=== PATIENT | female | born 1950 | race Caucasian/White ===

== ENCOUNTER 2020-05-21 14:32 | Inpatient (IN) | payer OTHER ==
[~2020-05-21] VITALS: Ht 165.1 cm; Wt 95.5 kg
[2020-05-21] MEDS ORDERED: KETOROLAC 15MG/ML VIAL IV ONE (15:00)
[2020-05-21] MEDS ORDERED: SODIUM CHLORIDE 0.9% 1,000 ML IV ONE (15:00)
[2020-05-21 15:23] LABS: BASOPHILS % 0.3 % (0.0-2.0); HEMATOCRIT. 38.9 % (36.0-48.0); HEMOGLOBIN. 12.7 g/dL (12.0-16.0); LYMPHOCYTES % 7.5 % (20.0-50.0); MEAN CORPUSCULAR HEMOGLOBIN 30.8 pg (28.0-32.0); MEAN CORPUSCULAR VOLUME 94.5 fL (81.0-99.0); MEAN PLATELET VOLUME 8.5 fl (7.4-10.4); NEUTROPHILS % 83.2 % (40.0-76.0); PLATELET 316 x1000/uL (130-400); RED BLOOD CELL COUNT 4.12 mill/uL (4.2-5.4); RED CELL DISTRIBUTION WIDTH 14.2 % (11.6-14.6)
[2020-05-21 15:29] LABS: CHLORIDE 105 mEq/L (98-107)
[2020-05-21 15:34] LABS: PROTHROMBIN TIME 10.9 sec (9.6-11.0)
[2020-05-21 16:08] LABS: CREATINE KINASE 5896 IU/L (26-192)
[2020-05-21] MEDS ORDERED: DOCUSATE SODIUM 100MG CAPSULE PO PRN (19:30)
[2020-05-21] MEDS ORDERED: IPRATROPIUM/ALBUTEROL 0.5-3(2.5)MG/3ML NEB HHN PRN (19:30)
[2020-05-21] MEDS: SODIUM CHLORIDE 0.45% 1,000 ML IV SCH (19:30)
[2020-05-21] MEDS ORDERED: LORAZEPAM 2MG/ML CPJ IV PRN (19:30)
[2020-05-21] MEDS ORDERED: MAGNESIUM/ALUMINUM HYDROXIDE/SIMETHICONE 30ML UDC PO PRN (19:30)
[2020-05-21] MEDS ORDERED: ONDANSETRON HCL 4MG/2ML INJ IV PRN (19:30)
[2020-05-21] MEDS ORDERED: DIPHENHYDRAMINE 50MG/ML VIAL IV PRN (19:30)
[2020-05-21] MEDS ORDERED: HYDRALAZINE 20MG/ML VIAL IV PRN (19:30)
[2020-05-21] MEDS ORDERED: GUAIFENESIN 200MG/10ML SUGAR FREE UDC PO PRN (19:30)
[2020-05-21] MEDS: SODIUM CHLORIDE 0.9% INJ 3ML FLUSH IVF SCH (22:44)
[2020-05-21] MEDS: ENOXAPARIN 40MG/0.4ML SYR SUBCUT SCH (23:15)
[2020-05-21 23:31] LABS: CREATINE KINASE MB FRACTION 40.4 ng/mL (0.5-3.6)
[2020-05-21 23:43] LABS: CREATINE KINASE 6392 IU/L (26-192)
[2020-05-22 04:24] LABS: BASOPHILS % 0.1 % (0.0-2.0); HEMATOCRIT. 35.3 % (36.0-48.0); HEMOGLOBIN. 11.2 g/dL (12.0-16.0); LYMPHOCYTES % 10.1 % (20.0-50.0); MEAN CORPUSCULAR HEMOGLOBIN 29.9 pg (28.0-32.0); MEAN CORPUSCULAR VOLUME 94.5 fL (81.0-99.0); MEAN PLATELET VOLUME 8.7 fl (7.4-10.4); MONOCYTES % 9.7 % (2.0-8.0); NEUTROPHILS % 80.1 % (40.0-76.0); PLATELET 287 x1000/uL (130-400); RED BLOOD CELL COUNT 3.74 mill/uL (4.2-5.4)
[2020-05-22 04:31] LABS: CHLORIDE 110 mEq/L (98-107)
[2020-05-22 04:47] LABS: CREATINE KINASE MB FRACTION 25.2 ng/mL (0.5-3.6)
[2020-05-22 04:58] LABS: CREATINE KINASE 5380 IU/L (26-192)
[2020-05-22] MEDS: HYDROCODONE/ACETAMINOPHEN 5/325MG TABLET PO PRN (05:42)
[2020-05-22] MEDS: SODIUM CHLORIDE 0.45% 1,000 ML IV SCH ×2 (09:04→23:04)
[2020-05-22 10:00] VITALS: BP 127/75
[2020-05-22] MEDS ORDERED: POTASSIUM CHLORIDE 20MEQ TABLET SR PO NR (10:30)
[2020-05-22] MEDS: MORPHINE SULFATE 2 MG/ML CPJ (NOT FOR IM USE) IV PRN (11:13)
[2020-05-22] MEDS: SODIUM CHLORIDE 0.9% INJ 3ML FLUSH IVF SCH ×3 (11:14→22:58)
[2020-05-22 12:19] VITALS: BP 116/66
[2020-05-22 16:00] VITALS: BP 123/82
[2020-05-22 20:00] VITALS: BP 133/73
[2020-05-22] MEDS: ENOXAPARIN 40MG/0.4ML SYR SUBCUT SCH (20:17)
[2020-05-23] VITALS: BP 130/80
[2020-05-23] MEDS: MORPHINE SULFATE 2 MG/ML CPJ (NOT FOR IM USE) IV PRN ×2 (02:54→13:52)
[2020-05-23 04:00] VITALS: BP 115/82
[2020-05-23] MEDS: ACETAMINOPHEN 325MG TABLET PO PRN ×2 (04:46→16:14)
[2020-05-23] MEDS: SODIUM CHLORIDE 0.9% INJ 3ML FLUSH IVF SCH ×3 (05:29→22:25)
[2020-05-23 07:30] LABS: BASOPHILS % 0.1 % (0.0-2.0); EOSINOPHILS % 0.1 % (0.0-5.0); HEMOGLOBIN. 9.7 g/dL (12.0-16.0); LYMPHOCYTES % 9.4 % (20.0-50.0); MEAN CORPUSCULAR HEMOGLOBIN 30.5 pg (28.0-32.0); MEAN CORPUSCULAR VOLUME 94.6 fL (81.0-99.0); MEAN PLATELET VOLUME 8.9 fl (7.4-10.4); MONOCYTES % 10.4 % (2.0-8.0); PLATELET 274 x1000/uL (130-400); RED BLOOD CELL COUNT 3.17 mill/uL (4.2-5.4)
[2020-05-23 07:42] LABS: CHLORIDE 112 mEq/L (98-107)
[2020-05-23 08:00] VITALS: BP 133/67
[2020-05-23 08:05] LABS: CREATINE KINASE MB FRACTION 4.3 ng/mL (0.5-3.6)
[2020-05-23 08:18] LABS: CREATINE KINASE 2104 IU/L (26-192)
[2020-05-23] MEDS ORDERED: POTASSIUM CHLORIDE 20MEQ TABLET SR PO SCH (09:00)
[2020-05-23] MEDS: SODIUM CHLORIDE 0.45% 1,000 ML IV SCH (11:30)
[2020-05-23 12:00] VITALS: BP 143/80
[2020-05-23 16:00] VITALS: BP 133/80
[2020-05-23] MEDS ORDERED: POTASSIUM CHLORIDE INJ 40 MEQ in DEXT 5% WATER 250 ML IV SCH (16:00)
[2020-05-23] MEDS: ENOXAPARIN 40MG/0.4ML SYR SUBCUT SCH (19:36)
[2020-05-23 20:00] VITALS: BP 136/75
[2020-05-24] VITALS: BP 139/69
[2020-05-24] MEDS: SODIUM CHLORIDE 0.45% 1,000 ML IV SCH ×2 (00:33→14:47)
[2020-05-24] MEDS: MORPHINE SULFATE 2 MG/ML CPJ (NOT FOR IM USE) IV PRN ×2 (02:55→11:28)
[2020-05-24 04:00] VITALS: BP 150/82
[2020-05-24] MEDS: ACETAMINOPHEN 325MG TABLET PO PRN ×2 (04:56→20:07)
[2020-05-24] MEDS: SODIUM CHLORIDE 0.9% INJ 3ML FLUSH IVF SCH ×3 (05:34→20:07)
[2020-05-24 06:08] LABS: BASOPHILS % 0.2 % (0.0-2.0); EOSINOPHILS % 0.1 % (0.0-5.0); HEMATOCRIT. 30.8 % (36.0-48.0); HEMOGLOBIN. 9.8 g/dL (12.0-16.0); LYMPHOCYTES % 9.8 % (20.0-50.0); MEAN CORPUSCULAR HEMOGLOBIN 30.5 pg (28.0-32.0); MEAN PLATELET VOLUME 8.8 fl (7.4-10.4); MONOCYTES % 10.1 % (2.0-8.0); NEUTROPHILS % 79.8 % (40.0-76.0); PLATELET 265 x1000/uL (130-400); RED BLOOD CELL COUNT 3.21 mill/uL (4.2-5.4); RED CELL DISTRIBUTION WIDTH 14.1 % (11.6-14.6)
[2020-05-24 06:24] LABS: CHLORIDE 113 mEq/L (98-107)
[2020-05-24 06:37] LABS: CREATINE KINASE 966 IU/L (26-192)
[2020-05-24 08:00] VITALS: BP 97/67
[2020-05-24 12:00] VITALS: BP 143/75
[2020-05-24] MEDS ORDERED: CEFTRIAXONE 1 G PREMIX 50 ML IV SCH (13:15)
[2020-05-24] MEDS: CEFTRIAXONE 1,000 MG in DEXTROSE 5% WATER 50 ML IV SCH (14:46)
[2020-05-24] MEDS: HYDROCODONE/ACETAMINOPHEN 5/325MG TABLET PO PRN (14:47)
[2020-05-24 16:00] VITALS: BP 138/78
[2020-05-24 20:00] VITALS: BP 142/77
[2020-05-24] MEDS: ENOXAPARIN 40MG/0.4ML SYR SUBCUT SCH (20:07)
[2020-05-24 20:49] LABS: CLARITY URINE CLEAR (CLEAR); COLOR URINE YELLOW (YELLOW); KETONES URINE NEGATIVE (NEGATIVE); LEUKOCYTE ESTERASE URINE NEGATIVE (NEGATIVE); NITRITE URINE NEGATIVE (NEGATIVE); OCCULT BLOOD URINE NEGATIVE (NEGATIVE); PROTEIN URINE 1+ (NEGATIVE); SPECIFIC GRAVITY URINE 1.017 (1.005-1.030)
[2020-05-25] VITALS (7 sets, daily range): BP systolic 125–159; BP diastolic 62–89
[2020-05-25] MEDS: MORPHINE SULFATE 2 MG/ML CPJ (NOT FOR IM USE) IV PRN ×3 (02:08→17:58)
[2020-05-25] MEDS: ACETAMINOPHEN 325MG TABLET PO PRN ×3 (02:08→17:01)
[2020-05-25] MEDS: SODIUM CHLORIDE 0.45% 1,000 ML IV SCH ×2 (03:33→16:45)
[2020-05-25] MEDS: HYDROCODONE/ACETAMINOPHEN 5/325MG TABLET PO PRN (05:34)
[2020-05-25] MEDS: SODIUM CHLORIDE 0.9% INJ 3ML FLUSH IVF SCH ×3 (05:35→20:34)
[2020-05-25 08:27] LABS: BASOPHILS % 0.2 % (0.0-2.0); EOSINOPHILS % 0.7 % (0.0-5.0); HEMATOCRIT. 30.5 % (36.0-48.0); HEMOGLOBIN. 9.9 g/dL (12.0-16.0); LYMPHOCYTES % 12.9 % (20.0-50.0); MEAN CORPUSCULAR HEMOGLOBIN 30.6 pg (28.0-32.0); MEAN CORPUSCULAR VOLUME 94.8 fL (81.0-99.0); MEAN PLATELET VOLUME 8.3 fl (7.4-10.4); MONOCYTES % 9.7 % (2.0-8.0); NEUTROPHILS % 76.5 % (40.0-76.0); PLATELET 282 x1000/uL (130-400); RED BLOOD CELL COUNT 3.22 mill/uL (4.2-5.4); RED CELL DISTRIBUTION WIDTH 13.8 % (11.6-14.6)
[2020-05-25 08:35] LABS: CHLORIDE 109 mEq/L (98-107)
[2020-05-25] MEDS ORDERED: POTASSIUM CHLORIDE 20MEQ/PACKET PO NR (10:15)
[2020-05-25] MEDS: CEFTRIAXONE 1,000 MG in DEXTROSE 5% WATER 50 ML IV SCH (14:04)
[2020-05-25] MEDS ORDERED: ACETAMINOPHEN 650MG SUPP PR PRN (17:15)
[2020-05-25] MEDS: ENOXAPARIN 40MG/0.4ML SYR SUBCUT SCH (21:03)
[2020-05-26] VITALS: BP 118/86
[2020-05-26 04:00] VITALS: BP_SYST 132; BP_SYST 93; BP_DIAS 60; BP_DIAS 85
[2020-05-26] MEDS: SODIUM CHLORIDE 0.9% INJ 3ML FLUSH IVF SCH ×3 (06:51→21:14)
[2020-05-26] MEDS: SODIUM CHLORIDE 0.45% 1,000 ML IV SCH ×2 (07:15→18:40)
[2020-05-26 07:22] LABS: CHLORIDE 108 mEq/L (98-107)
[2020-05-26 08:00] VITALS: BP 151/81
[2020-05-26] MEDS ORDERED: POTASSIUM CHLORIDE INJ 40 MEQ in DEXT 5% WATER 250 ML IV SCH (10:00)
[2020-05-26 12:00] VITALS: BP 155/83
[2020-05-26] MEDS: ACETAMINOPHEN 325MG TABLET PO PRN ×2 (12:55→21:15)
[2020-05-26] MEDS: CEFTRIAXONE 1,000 MG in DEXTROSE 5% WATER 50 ML IV SCH (14:18)
[2020-05-26 16:20] VITALS: BP 129/66
[2020-05-26] MEDS: ENOXAPARIN 40MG/0.4ML SYR SUBCUT SCH (18:39)
[2020-05-26 20:00] VITALS: BP 127/73
[2020-05-27] MEDS: SODIUM CHLORIDE 0.9% INJ 3ML FLUSH IVF SCH ×3 (05:42→22:03)
[2020-05-27] MEDS: ACETAMINOPHEN 325MG TABLET PO PRN ×2 (06:22→20:23)
[2020-05-27 08:00] VITALS: BP 148/97
[2020-05-27] MEDS: SODIUM CHLORIDE 0.45% 1,000 ML IV SCH ×2 (09:16→22:04)
[2020-05-27 12:00] VITALS: BP 132/70
[2020-05-27] MEDS: MORPHINE SULFATE 2 MG/ML CPJ (NOT FOR IM USE) IV PRN ×2 (12:25→17:05)
[2020-05-27 12:32] LABS: CHLORIDE 105 mEq/L (98-107)
[2020-05-27] MEDS ORDERED: POTASSIUM CHLORIDE INJ 40 MEQ in DEXT 5% WATER 250 ML IV ONE (13:00)
[2020-05-27] MEDS ORDERED: LIDOCAINE HCL 1% 20ML VIAL (Pyxis) INJ ONE (14:48)
[2020-05-27] MEDS: CEFTRIAXONE 1,000 MG in DEXTROSE 5% WATER 50 ML IV SCH (16:35)
[2020-05-27 20:00] VITALS: BP 156/77
[2020-05-27] MEDS: ENOXAPARIN 40MG/0.4ML SYR SUBCUT SCH (20:21)
[2020-05-28] VITALS (7 sets, daily range): BP systolic 140–158; BP diastolic 68–89
[2020-05-28] MEDS: MORPHINE SULFATE 2 MG/ML CPJ (NOT FOR IM USE) IV PRN ×3 (06:26→17:45)
[2020-05-28] MEDS: SODIUM CHLORIDE 0.9% INJ 3ML FLUSH IVF SCH ×3 (06:59→21:00)
[2020-05-28] MEDS ORDERED: DEXT 5%/0.9% NACL 1,000 ML IV SCH (11:00)
[2020-05-28] MEDS ORDERED: DEXT 5%/0.45% NACL 500ML 1,000 ML IV SCH (11:15)
[2020-05-28] MEDS: DEXT 5%/0.45% NACL 1000ML 1,000 ML IV SCH (11:24)
[2020-05-28] MEDS ORDERED: VANCOMYCIN 1 G PREMIX 200 ML IV SCH (12:00)
[2020-05-28] MEDS: ACETAMINOPHEN 325MG TABLET PO PRN (12:50)
[2020-05-28] MEDS: ASPIRIN 81MG EC TABLET PO SCH (12:50)
[2020-05-28] MEDS: PANTOPRAZOLE SODIUM 40 MG/VIAL IV SCH (13:59)
[2020-05-28] MEDS: CEFTRIAXONE 1,000 MG in DEXTROSE 5% WATER 50 ML IV SCH (14:00)
[2020-05-28] MEDS ORDERED: KCL 20MEQ/100ML PREMIX 100 ML IV ONE (15:15)
[2020-05-28 16:01] LABS: HEMATOCRIT. 28.2 % (36.0-48.0); HEMOGLOBIN. 9.2 g/dL (12.0-16.0); MEAN CORPUSCULAR HEMOGLOBIN 30.2 pg (28.0-32.0); MEAN PLATELET VOLUME 7.5 fl (7.4-10.4); PLATELET 334 x1000/uL (130-400); RED BLOOD CELL COUNT 3.03 mill/uL (4.2-5.4); RED CELL DISTRIBUTION WIDTH 13.7 % (11.6-14.6)
[2020-05-28 16:22] LABS: BG CARBOXYHEMOGLOBIN 0.1 % (0.5-1.5); BG DEOXYHEMOGLOBIN 6.1 % (0.0-5.0); BG FRACTION INSPIRED OXYGEN 21; BG HCO3 ACT 25.7 mmol/L (22.0-26.0); BG METHEMOGLOBIN 0.4 % (0.0-1.5); BG OXYGEN SATURATION 93.9 % (92.0-98.5); BG OXYHEMOGLOBIN 93.4 % (94.0-97.0); BG PCO2 37.1 mmHg (35.0-45.0); BG PH 7.459 (7.350-7.450); BG PO2 69.1 mmHg (75.0-100.0); BG SAMPLE SITE RIGHT RADIAL; BG TOTAL HEMOGLOBIN 12.4 g/dL (12.0-18.0); BG VENT MODE ROOM AIR
[2020-05-28 16:42] LABS: PLATELET ESTIMATE NORMAL
[2020-05-28 16:59] LABS: CHLORIDE 104 mEq/L (98-107)
[2020-05-28] MEDS: PIPERACILLIN/TAZOBACTAM 3.375 G in DEXT 5% WATER 100 ML IV SCH (17:45)
[2020-05-28] MEDS ORDERED: VANCOMYCIN 1500MG in DEXTROSE 5% WATER 250ML IV NR (18:00)
[2020-05-28] MEDS: ATORVASTATIN CALCIUM 20MG TABLET PO SCH (20:47)
[2020-05-28] MEDS: ENOXAPARIN 40MG/0.4ML SYR SUBCUT SCH (20:48)
[2020-05-28] MEDS ORDERED: POTASSIUM CHLORIDE INJ 40 MEQ in DEXT 5% WATER 250 ML IV NR (21:00)
[2020-05-29] VITALS: BP 143/84
[2020-05-29] MEDS: PIPERACILLIN/TAZOBACTAM 3.375 G in DEXT 5% WATER 100 ML IV SCH ×5 (00:23→23:23)
[2020-05-29] MEDS: DEXT 5%/0.45% NACL 1000ML 1,000 ML IV SCH ×2 (02:22→18:37)
[2020-05-29 04:00] VITALS: BP 141/72
[2020-05-29] MEDS: MORPHINE SULFATE 2 MG/ML CPJ (NOT FOR IM USE) IV PRN ×2 (04:09→11:30)
[2020-05-29] MEDS: SODIUM CHLORIDE 0.9% INJ 3ML FLUSH IVF SCH ×3 (05:17→21:42)
[2020-05-29] MEDS: PANTOPRAZOLE SODIUM 40 MG/VIAL IV SCH ×2 (05:18→18:36)
[2020-05-29 07:43] LABS: HEMATOCRIT. 28.7 % (36.0-48.0); HEMOGLOBIN. 9.4 g/dL (12.0-16.0); MEAN CORPUSCULAR HEMOGLOBIN 30.8 pg (28.0-32.0); MEAN CORPUSCULAR VOLUME 93.9 fL (81.0-99.0); MEAN PLATELET VOLUME 8.1 fl (7.4-10.4); PLATELET 339 x1000/uL (130-400); RED BLOOD CELL COUNT 3.06 mill/uL (4.2-5.4); RED CELL DISTRIBUTION WIDTH 13.7 % (11.6-14.6)
[2020-05-29 07:46] LABS: INR 1.1; PARTIAL THROMBOPLASTIN TIME 32.2 sec (23.4-31.0); PROTHROMBIN TIME 11.4 sec (9.6-11.0)
[2020-05-29 07:55] LABS: CHLORIDE 103 mEq/L (98-107)
[2020-05-29 08:00] VITALS: BP 151/73
[2020-05-29 08:06] LABS: LDL CHOLESTEROL 58 mg/dL (5-100)
[2020-05-29 08:08] LABS: CREATINE KINASE 162 IU/L (26-192); HDL CHOLESTEROL 29 mg/dL (40-59)
[2020-05-29] MEDS: ASPIRIN 81MG EC TABLET PO SCH (09:00)
[2020-05-29 11:17] LABS: PLATELET ESTIMATE NORMAL
[2020-05-29] MEDS: VANCOMYCIN 1 G PREMIX 200 ML IV SCH (11:29)
[2020-05-29] MEDS ORDERED: SODIUM BICARBONATE 4% (2.4MEQ) 5ML VIAL IV ONE (13:31)
[2020-05-29] MEDS ORDERED: LIDOCAINE HCL 1% 20ML VIAL (Pyxis) INJ ONE (13:31)
[2020-05-29 16:00] VITALS: BP 151/93
[2020-05-29] MEDS ORDERED: MIDAZOLAM HCL 5 MG/5 ML VIAL ONE ×2 (16:29→16:30)
[2020-05-29] MEDS ORDERED: FENTANYL CITRATE/PF 50MCG/ML 2ML VIAL ONE (16:30)
[2020-05-29] MEDS ORDERED: MIDAZOLAM HCL 5 MG/5 ML VIAL IV PRN (16:31)
[2020-05-29] MEDS: ENOXAPARIN 40MG/0.4ML SYR SUBCUT SCH (18:36)
[2020-05-29 20:00] VITALS: BP 121/76
[2020-05-29] MEDS: ATORVASTATIN CALCIUM 20MG TABLET PO SCH (21:00)
[2020-05-30] VITALS: BP 147/82
[2020-05-30 04:00] VITALS: BP 158/73
[2020-05-30] MEDS: PANTOPRAZOLE SODIUM 40 MG/VIAL IV SCH ×2 (05:08→17:34)
[2020-05-30] MEDS: SODIUM CHLORIDE 0.9% INJ 3ML FLUSH IVF SCH ×2 (05:09→13:57)
[2020-05-30] MEDS: VANCOMYCIN 1 G PREMIX 200 ML IV SCH (05:09)
[2020-05-30] MEDS: PIPERACILLIN/TAZOBACTAM 3.375 G in DEXT 5% WATER 100 ML IV SCH ×2 (06:44→11:41)
[2020-05-30 07:27] LABS: HEMATOCRIT. 28.7 % (36.0-48.0); HEMOGLOBIN. 9.3 g/dL (12.0-16.0); MEAN CORPUSCULAR HEMOGLOBIN 30.4 pg (28.0-32.0); MEAN CORPUSCULAR VOLUME 94.2 fL (81.0-99.0); MEAN PLATELET VOLUME 7.5 fl (7.4-10.4); PLATELET 387 x1000/uL (130-400); RED BLOOD CELL COUNT 3.05 mill/uL (4.2-5.4)
[2020-05-30 07:40] LABS: CHLORIDE 104 mEq/L (98-107)
[2020-05-30 08:00] VITALS: BP 158/100
[2020-05-30] MEDS: ASPIRIN 81MG EC TABLET PO SCH (08:23)
[2020-05-30 12:00] VITALS: BP 153/74
[2020-05-30 14:42] LABS: PLATELET ESTIMATE NORMAL
[2020-05-30 16:00] VITALS: BP 136/80
[2020-05-30] MEDS: DEXT 5%/0.45% NACL 1000ML 1,000 ML IV SCH (16:12)
[2020-05-30] MEDS ORDERED: POTASSIUM CHLORIDE 20MEQ TABLET SR PO NR (17:00)
[2020-05-30 20:00] VITALS: BP 176/88
[2020-05-30] MEDS: CEFTRIAXONE 1,000 MG in DEXTROSE 5% WATER 50 ML IV SCH (20:58)
[2020-05-30] MEDS: ENOXAPARIN 40MG/0.4ML SYR SUBCUT SCH (20:59)
[2020-05-30] MEDS: ATORVASTATIN CALCIUM 20MG TABLET PO SCH (21:00)
[2020-05-30] MEDS: CLONIDINE 0.1MG TABLET PO PRN (21:00)
[2020-05-31] VITALS: BP 129/69
[2020-05-31] MEDS: ACETAMINOPHEN 325MG TABLET PO PRN ×2 (01:55→09:59)
[2020-05-31 04:00] VITALS: BP 130/66
[2020-05-31] MEDS: PANTOPRAZOLE SODIUM 40 MG/VIAL IV SCH ×2 (05:55→17:07)
[2020-05-31] MEDS: DEXT 5%/0.45% NACL 1000ML 1,000 ML IV SCH (05:56)
[2020-05-31] MEDS: VANCOMYCIN 1 G PREMIX 200 ML IV SCH (05:57)
[2020-05-31] MEDS: SODIUM CHLORIDE 0.9% INJ 3ML FLUSH IVF SCH ×4 (05:57→21:25)
[2020-05-31 07:07] LABS: BASOPHILS % 0.3 % (0.0-2.0); EOSINOPHILS % 2.6 % (0.0-5.0); HEMATOCRIT. 28.9 % (36.0-48.0); HEMOGLOBIN. 9.4 g/dL (12.0-16.0); MEAN CORPUSCULAR HEMOGLOBIN 30.3 pg (28.0-32.0); MEAN CORPUSCULAR VOLUME 93.3 fL (81.0-99.0); MEAN PLATELET VOLUME 7.4 fl (7.4-10.4); MONOCYTES % 8.3 % (2.0-8.0); NEUTROPHILS % 69.8 % (40.0-76.0); PLATELET 413 x1000/uL (130-400); RED CELL DISTRIBUTION WIDTH 13.7 % (11.6-14.6)
[2020-05-31 07:39] LABS: CHLORIDE 107 mEq/L (98-107)
[2020-05-31 08:00] VITALS: BP 146/74
[2020-05-31] MEDS: ASPIRIN 81MG EC TABLET PO SCH (08:23)
[2020-05-31 12:00] VITALS: BP 112/75
[2020-05-31] MEDS ORDERED: POTASSIUM CHLORIDE INJ 40 MEQ in DEXT 5% WATER 250 ML IV SCH (12:00)
[2020-05-31] MEDS: SODIUM HYPOCHLORITE 0.125% 473ML SOLUTION TOP SCH (13:43)
[2020-05-31 16:00] VITALS: BP 130/70
[2020-05-31 20:00] VITALS: BP 142/72
[2020-05-31] MEDS: ATORVASTATIN CALCIUM 20MG TABLET PO SCH (21:25)
[2020-05-31] MEDS: CEFTRIAXONE 1,000 MG in DEXTROSE 5% WATER 50 ML IV SCH (21:26)
[2020-05-31] MEDS: ENOXAPARIN 40MG/0.4ML SYR SUBCUT SCH (21:45)
[2020-06-01] VITALS: BP 142/82
[2020-06-01] MEDS: SODIUM CHLORIDE 0.9% INJ 3ML FLUSH IVF SCH ×3 (05:32→21:27)
[2020-06-01] MEDS: PANTOPRAZOLE SODIUM 40 MG/VIAL IV SCH ×2 (05:32→16:18)
[2020-06-01] MEDS: MORPHINE SULFATE 2 MG/ML CPJ (NOT FOR IM USE) IV PRN (05:41)
[2020-06-01 06:08] VITALS: BP 157/71
[2020-06-01 08:00] VITALS: BP 110/79
[2020-06-01] MEDS: SODIUM HYPOCHLORITE 0.125% 473ML SOLUTION TOP SCH (08:13)
[2020-06-01] MEDS: ASPIRIN 81MG EC TABLET PO SCH (08:13)
[2020-06-01 09:08] LABS: CHLORIDE 107 mEq/L (98-107)
[2020-06-01 09:49] LABS: BASOPHILS % 0.5 % (0.0-2.0); EOSINOPHILS % 2.8 % (0.0-5.0); HEMATOCRIT. 29.6 % (36.0-48.0); HEMOGLOBIN. 9.7 g/dL (12.0-16.0); LYMPHOCYTES % 16.4 % (20.0-50.0); MEAN CORPUSCULAR HEMOGLOBIN 30.8 pg (28.0-32.0); MEAN CORPUSCULAR VOLUME 94.5 fL (81.0-99.0); MEAN PLATELET VOLUME 7.4 fl (7.4-10.4); MONOCYTES % 6.4 % (2.0-8.0); NEUTROPHILS % 73.9 % (40.0-76.0); PLATELET 460 x1000/uL (130-400); RED BLOOD CELL COUNT 3.14 mill/uL (4.2-5.4); RED CELL DISTRIBUTION WIDTH 13.6 % (11.6-14.6)
[2020-06-01] MEDS: ACETAMINOPHEN 325MG TABLET PO PRN (10:58)
[2020-06-01 12:00] VITALS: BP 138/72
[2020-06-01] MEDS ORDERED: VANCOMYCIN 1 G PREMIX 200 ML IV SCH (12:00)
[2020-06-01] MEDS: VANCOMYCIN 1 G PREMIX 200 ML IV SCH (12:11)
[2020-06-01 16:00] VITALS: BP 145/82
[2020-06-01] MEDS: CEFTRIAXONE 1,000 MG in DEXTROSE 5% WATER 50 ML IV SCH (19:51)
[2020-06-01] MEDS: ENOXAPARIN 40MG/0.4ML SYR SUBCUT SCH (19:52)
[2020-06-01 20:00] VITALS: BP 147/72
[2020-06-01] MEDS: ATORVASTATIN CALCIUM 20MG TABLET PO SCH (21:27)
[2020-06-02] VITALS: BP 142/76
[2020-06-02 04:00] VITALS: BP 136/75
[2020-06-02] MEDS: SODIUM CHLORIDE 0.9% INJ 3ML FLUSH IVF SCH ×3 (05:01→20:41)
[2020-06-02] MEDS: PANTOPRAZOLE SODIUM 40 MG/VIAL IV SCH ×2 (05:01→18:33)
[2020-06-02 08:00] VITALS: BP 160/76
[2020-06-02 08:51] LABS: BASOPHILS % 0.3 % (0.0-2.0); EOSINOPHILS % 2.2 % (0.0-5.0); HEMATOCRIT. 30.6 % (36.0-48.0); HEMOGLOBIN. 9.8 g/dL (12.0-16.0); LYMPHOCYTES % 18.1 % (20.0-50.0); MEAN CORPUSCULAR VOLUME 93.7 fL (81.0-99.0); MEAN PLATELET VOLUME 7.5 fl (7.4-10.4); MONOCYTES % 6.3 % (2.0-8.0); NEUTROPHILS % 73.1 % (40.0-76.0); PLATELET 547 x1000/uL (130-400); RED BLOOD CELL COUNT 3.27 mill/uL (4.2-5.4); RED CELL DISTRIBUTION WIDTH 13.6 % (11.6-14.6)
[2020-06-02] MEDS: ASPIRIN 81MG EC TABLET PO SCH (08:59)
[2020-06-02] MEDS: CLONIDINE 0.1MG TABLET PO PRN (09:00)
[2020-06-02] MEDS: SODIUM HYPOCHLORITE 0.125% 473ML SOLUTION TOP SCH (09:00)
[2020-06-02 09:19] LABS: CHLORIDE 105 mEq/L (98-107)
[2020-06-02 12:00] VITALS: BP 157/77
[2020-06-02] MEDS: VANCOMYCIN 1 G PREMIX 200 ML IV SCH (12:53)
[2020-06-02 16:00] VITALS: BP 153/86
[2020-06-02] MEDS: ENOXAPARIN 40MG/0.4ML SYR SUBCUT SCH (18:34)
[2020-06-02 20:00] VITALS: BP 124/68
[2020-06-02] MEDS: ATORVASTATIN CALCIUM 20MG TABLET PO SCH (20:40)
[2020-06-03] VITALS: BP 120/60
[2020-06-03 04:00] VITALS: BP 125/71
[2020-06-03] MEDS: PANTOPRAZOLE SODIUM 40 MG/VIAL IV SCH (05:50)
[2020-06-03] MEDS: SODIUM CHLORIDE 0.9% INJ 3ML FLUSH IVF SCH ×2 (05:51→13:01)
[2020-06-03 08:00] VITALS: BP 148/90
[2020-06-03] MEDS: ASPIRIN 81MG EC TABLET PO SCH (09:20)
[2020-06-03] MEDS: SODIUM HYPOCHLORITE 0.125% 473ML SOLUTION TOP SCH (09:21)
[2020-06-03 12:00] VITALS: BP 149/72
[2020-06-03 16:00] VITALS: BP 136/69
[2020-06-03] MEDS ORDERED: CEFTRIAXONE 1,000 MG in DEXTROSE 5% WATER 50 ML IV SCH (16:00)
[2020-06-03 16:05] VITALS: BP 136/69
[2020-06-03] MEDS ORDERED: VANCOMYCIN 1 G PREMIX 200 ML IV SCH (18:00)
== END 2020-06-03 17:30 | DRG 871 ==
LOC: ER 14:32 → MICUSO 18:18 → EDBEDREQ 18:23 → EDBEDREQTM 18:23 → 5WST 05-22 07:44 → 7WST 05-26 10:09 → 5WST 05-26 22:18
PROVIDERS: ADMIT Internal Medicine; ATTEND Internal Medicine
PROC: 02HV33Z Insertion of Infusion Device into Superior Vena Cava, Percutaneous Approach (ICD-10-PCS; 2020-05-27)
PROC: B518ZZA Fluoroscopy of Superior Vena Cava, Guidance (ICD-10-PCS; 2020-05-27)
PROC: B548ZZA Ultrasonography of Superior Vena Cava, Guidance (ICD-10-PCS; 2020-05-27)
PROC: 4A10X4Z Monitoring of Central Nervous Electrical Activity, External Approach (ICD-10-PCS; 2020-05-28)
PROC: 0DH63UZ Insertion of Feeding Device into Stomach, Percutaneous Approach (ICD-10-PCS; principal; 2020-05-29)
PROC: 0DB78ZX Excision of Stomach, Pylorus, Via Natural or Artificial Opening Endoscopic, Diagnostic (ICD-10-PCS; 2020-05-29)
PROC: 0S9C3ZZ Drainage of Right Knee Joint, Percutaneous Approach (ICD-10-PCS; 2020-05-29)
DX: A41.9 Sepsis, unspecified organism (principal); I63.511 Cerebral infarction due to unspecified occlusion or stenosis of right middle cerebral artery; I63.521 Cerebral infarction due to unspecified occlusion or stenosis of right anterior cerebral artery; S82.201P Unspecified fracture of shaft of right tibia, subsequent encounter for closed fracture with malunion; M62.82 Rhabdomyolysis; E46 Unspecified protein-calorie malnutrition; G93.49 Other encephalopathy; G81.94 Hemiplegia, unspecified affecting left nondominant side; M00.9 Pyogenic arthritis, unspecified; S82.141P Displaced bicondylar fracture of right tibia, subsequent encounter for closed fracture with malunion; M17.11 Unilateral primary osteoarthritis, right knee; M25.551 Pain in right hip; E87.6 Hypokalemia; M85.80 Other specified disorders of bone density and structure, unspecified site; E78.5 Hyperlipidemia, unspecified; G89.29 Other chronic pain; I11.9 Hypertensive heart disease without heart failure; L85.3 Xerosis cutis; S80.822A Blister (nonthermal), left lower leg, initial encounter; S90.822A Blister (nonthermal), left foot, initial encounter; W18.2XXA Fall in (into) shower or empty bathtub, initial encounter; M21.169 Varus deformity, not elsewhere classified, unspecified knee; D64.9 Anemia, unspecified; E66.01 Morbid (severe) obesity due to excess calories; M25.461 Effusion, right knee; F17.200 Nicotine dependence, unspecified, uncomplicated; R13.12 Dysphagia, oropharyngeal phase; L89.150 Pressure ulcer of sacral region, unstageable; X58.XXXD Exposure to other specified factors, subsequent encounter; S80.821A Blister (nonthermal), right lower leg, initial encounter; K25.9 Gastric ulcer, unspecified as acute or chronic, without hemorrhage or perforation; K44.9 Diaphragmatic hernia without obstruction or gangrene; K29.60 Other gastritis without bleeding; I70.202 Unspecified atherosclerosis of native arteries of extremities, left leg; Z20.822 Contact with and (suspected) exposure to COVID-19; Z68.35 Body mass index [BMI] 35.0-35.9, adult; Y93.E1 Activity, personal bathing and showering; Y92.091 Bathroom in other non-institutional residence as the place of occurrence of the external cause; Y99.8 Other external cause status
CPT/HCPCS: 20611; 36415; 36573; 36600; 70551; 71045; 73521; 73560; 73700; 80048; 80053; 80061; 80202; 81003; 82040; 82140; 82375; 82550; 82553; 82805; 84134; 84145; 84443; 84484; 84550; 85025; 85651; 86141; 87426; 88305; 88313; 89060; 92610; 93005; 93306; 93880; 93923; 93970; 95816; 96374; 97110; 97162; 97530; 99285; C1725; C9113; J0696; J1650; J1885; J2060; J2250; J2270; J2405; J2543; J3010; J3370; J3480; J3490; J7040; J7042; J7060; U0003